=== PATIENT | female | born 1985 | race Caucasian/White ===

== ENCOUNTER 2024-03-04 23:51 | Emergency (ER) | payer OTHER ==
[~2024-03-04] VITALS: Ht 157.5 cm; Wt 99.3 kg
[2024-03-05] MEDS ORDERED: EFFEXOR XR37.5 MG (00:02)
[2024-03-05] MEDS ORDERED: INTEGRA CAPSUL1 EACH (00:02)
[2024-03-05] MEDS ORDERED: LORazepam 2 MG/ML VIAL IM STA (01:52)
[2024-03-05] MEDS ORDERED: LORazepam 2 MG/ML VIAL ONE (02:02)
== END 2024-03-05 06:35 | disposition home or self-care (01) ==
LOC: ER 23:51
DX: F41.1 Generalized anxiety disorder (principal)